=== PATIENT | female | born 1990 | race Caucasian/White ===

== ENCOUNTER 2021-07-24 12:04 | Outpatient (REF) | payer OTHER, SELFPAY | END 2021-07-24 12:05 | disposition home or self-care (01) | LOC: HO.LAB 12:04 | PROVIDERS: Visit Provider Internal Medicine | DX: Z20.822 Contact with and (suspected) exposure to COVID-19 (principal) | CPT/HCPCS: C9803; U0003; U0005 ==

== ENCOUNTER 2021-11-04 12:30 | Outpatient (REF) | payer OTHER, SELFPAY | END 2021-11-04 12:31 | disposition home or self-care (01) | LOC: HO.LAB 12:30 | PROVIDERS: Visit Provider Internal Medicine | DX: Z20.822 Contact with and (suspected) exposure to COVID-19 (principal) | CPT/HCPCS: C9803; U0003; U0005 ==